=== PATIENT | female | born 1945 | race Caucasian/White ===

== ENCOUNTER 2016-08-11 14:43 | Inpatient (IN) | payer MEDICARE, OTHER ==
[2016-08-11 14:57] VITALS: BMI 19.7
[2016-08-11 15:22] LABS: MPV 7.5 fL (7.4-10.4)
[2016-08-11 15:35] LABS: BLOOD UREA NITROGEN 20 MG/DL (7-17); CALCIUM 8.4 MG/DL (8.4-10.2); CALCULATED OSMOLALITY 261 MOs/Kg (270-290); CHLORIDE 95 mEq/L (98-107); GLUCOSE 137 MG/DL (70-99); SODIUM LEVEL 133 mEq/L (137-146); TOTAL PROTEIN 7.4 G/DL (6.3-8.2)
[2016-08-11] MEDS ORDERED: NS 1,000 ML IV ONE ×2 (15:43→17:53)
[2016-08-11] MEDS ORDERED: PIPERACILLIN AND TAZOBACTAM 3.375 GM in D5W 100 ML IV ONE (15:43)
[2016-08-11] MEDS ORDERED: Pharmacy Review for Metformin - IV Contrast Given SCH (16:00)
[2016-08-11 16:19] LABS: LEUKOCYTES/URINE NEG (NEGATIVE); NITRITE/URINE NEG (NEGATIVE); URINE OCCULT BLOOD 2+ (NEG/TRACE)
--- NOTE | 2016-08-11 16:31 | EDPRACDOC ---
- General Information Chief Complaint: Abdominal Pain Stated Complaint: ABD PAIN Time Seen by Provider: 08/11/16 15:32 Information Source: Patient, Family Home Medications: Home Medications Pravastatin [Pravachol] 40 mg PO DAILY 08/18/15 Metoprolol Succinate (XL) [Toprol Xl] 50 mg PO DAILY 08/22/15 Zolpidem Tartrate [Ambien] 5 mg PO HS PRN 02/08/16 Omeprazole [Prilosec] 20 mg PO DAILY PRN 04/18/16 Allergies/Adverse Reactions: Allergies Allergy/AdvReac Type Severity Reaction Status Date / Time No Known Allergies Allergy Verified 08/11/16 14:56 - History of Present Illness Onset: FRI HPI: WEAKNESS FOR 2-3 DAYS, AGGRAVATED BY STANDING AND WALKING SUCH TO THE BATHROOM. LOW-GRADE FEVER FOR 2 DAYS WELL. 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 PATIENT HAD X-RAY PERFORMED 2 DAYS AGO BY ONCOLOGIST WHICH DEMONSTRATED POSSIBLE SMALL-BOWEL OBSTRUCTION. HOWEVER FOR PAST 2 DAYS THE PATIENT HAS HAD NORMAL STOOL OUTPUT. AND SOME NAUSEA BUT NO SIGNIFICANT VOMITING. SHE HAS CHRONIC ABDOMINAL PAIN, HOWEVER FOR THE PAST 2 DAYS HER PAIN IS ACTUALLY IMPROVED. SHE IS SERIOUSLY CONCERNED ABOUT BOWEL OBSTRUCTION RELATED TO HER RECURRENT COLON CANCER. NO SIGNIFICANT COUGH OR SHORTNESS OF BREATH NO DYSURIA URGENCY OR FREQUENCY NO WOUNDS. ED Past Medical History - History Reviewed Yes Nurses notes reviewed and agree except as marked - Patient Medical History Neurological History: Denies: Cerebrovascular Accident, Seizures Cardiac History: Reports: Hypertension, Hypercholesterolemia. Denies: Atrial Fibrillation Respiratory History: Denies: Asthma, COPD, Pneumonia GI/ History: Denies: Renal Disease, Liver Failure, Gastroesophageal Reflux Musculoskeletal History: Denies: Arthritis, Rheumatoid Arthritis Psychological History: Denies: Depression, Anxiety, Substance Use Disorder Systemic History: Reports: Cancer (COLON WITH METS) Surgical History: Reports: Cholecystectomy, Hysterectomy, Other (Laparoscopic colon resection) Date of Last Chemotherapy Date: 5 WEEKS AG - Family Medical History Reports: Cancer (lung cancer related to work grandfather). Denies: Hypertension , Diabetes, Stroke, Cardiac Disorders - Social Medical History Smoking Status: Heavy tobacco smoker (5 or more cigarettes/day or daily pipe/ cigar) Social History: Denies: Substance Use Disorder EDM Review of Systems - Review of Systems ROS Negative Except as Marked: Yes All systems reviewed and were negative except as marked - Physical Exam Constitutional: No apparent distress, Alert, Cachectic. negative: Well nourished, Well appearing Oriented to: Time, Person, Place Last recorded Vital Signs: Last Vital Signs Temp 100.6 F H 08/11/16 14:56 Pulse 109 08/11/16 15:40 Resp 20 08/11/16 15:40 BP 130/69 08/11/16 15:40 Pulse Ox 95 08/11/16 15:40 Oxygen Pulse Oxygen Saturation 95 O2 Device Room Air Oxygen Flow Rate Fraction of Inspired Oxygen ( FIO2) - HEENT Head: Normal Eye Exam: Normal Oropharynx: Membranes Dry Nose: No Symptoms Reported Neck: Normal. negative: Limited ROM, Lymphadenopathy, Meningeal Signs - Respiratory/Cardiovascular Respiratory: Normal - CTA Cardiovascular: Normal - GI Auscultation: Normal Palpation: Normal Tenderness: Diffuse, Mild. negative: Guarding, Rebound, Rigidity Kerr's Sign: Negative - Bladder: Normal - Musculoskeletal Back: Normal Extremities: Normal. negative: Clubbing, Cyanosis, Pedal Edema, Pedal Pulse - Integumentary Skin: Normal, Warm, Dry - Neurologic Memory Impaired: Normal Motor Function: Normal Mood Description: Anxious Thought: Coherent - Re-evaluation Re-evaluation 3 Re-evaluation Time: 18:51 (WELL APPEARING, TOLERATING WATER W/O N/V. ABD EXAM BENIGN.) HISTORY DOES NOT SUGGEST SMALL BOWEL OBSTRUCTION, I SUSPECT THE CT SCAN FINDINGS ARE ACTUALLY MORE RELATED TO A BOWEL STRICTURE WITHOUT OBSTRUCTION. BASED ON HISTORY AND PHYSICAL EXAM THERE IS NO INDICATION THAT THE FEVER IS RELATED TO ANYTHING IN THE ABDOMEN. SHE HAS HAD IV FLUIDS HE HAS HAD ANTIBIOTICS SHE IS DOING WELL - Results 08/11/16 15:09 08/11/16 15:09 WBC 1.2 xk/uL (3.8-10.8) L 08/11/16 15:09 RBC 4.16 xM/uL (4.20-5.40) L 08/11/16 15:09 Hgb 13.6 g/dL (12.0-16.0) 08/11/16 15:09 Hct 39.4 % (36-47) 08/11/16 15:09 MCV 95 fL (81-99) 08/11/16 15:09 MCH 32.6 pg (27-32) H 08/11/16 15:09 MCHC 34.4 g/dl (33-36) 08/11/16 15:09 RDW 12.1 % (11.5-14.5) 08/11/16 15:09 Plt Count 151 xk/uL (130-400) 08/11/16 15:09 MPV 7.5 fL (7.4-10.4) 08/11/16 15:09 Sodium 133 mEq/L (137-146) L 08/11/16 15:09 Potassium 3.2 mEq/L (3.5-5.1) L 08/11/16 15:09 Chloride 95 mEq/L (98-107) L 08/11/16 15:09 Carbon Dioxide 26 mMOL/L (22-33) 08/11/16 15:09 Anion Gap 15 mEq/L (8-16) 08/11/16 15:09 BUN 20 MG/DL (7-17) H 08/11/16 15:09 Creatinine 0.90 MG/DL (0.52-1.04) 08/11/16 15:09 Estimated GFR (MDRD) > 60 mL/min (>=60) 08/11/16 15:09 Glucose 137 MG/DL (70-99) H 08/11/16 15:09 Calculated Osmolality 261 MOs/Kg (270-290) L 08/11/16 15:09 Lactic Acid 2.0 mEq/L (0.7-2.1) 08/11/16 15:08 Calcium 8.4 MG/DL (8.4-10.2) 08/11/16 15:09 Total Bilirubin 2.4 MG/DL (0.2-1.3) H 08/11/16 15:09 AST 64 IU/L (14-36) H 08/11/16 15:09 ALT 69 IU/L (9-52) H 08/11/16 15:09 Alkaline Phosphatase 114 IU/L (55-165) 08/11/16 15:09 Total Protein 7.4 G/DL (6.3-8.2) 08/11/16 15:09 Albumin 4.0 G/DL (3.5-5.0) 08/11/16 15:09 Urine Color Neha 08/11/16 15:09 Urine Clarity Sl cldy 08/11/16 15:09 Urine pH 6.0 (5.0-8.0) 08/11/16 15:09 Ur Specific Sterling 1.025 (1.003-1.035) 08/11/16 15:09 Urine Protein 2+ (NEG/TRACE) H 08/11/16 15:09 Urine Glucose (UA) Neg (NEGATIVE) 08/11/16 15:09 Urine Ketones 1+ (NEGATIVE) H 08/11/16 15:09 Urine Occult Blood 2+ (NEG/TRACE) H 08/11/16 15:09 Urine Nitrite Neg (NEGATIVE) 08/11/16 15:09 Urine Bilirubin 1+ (NEGATIVE) H 08/11/16 15:09 Urine Urobilinogen 8 MG/DL (0-1) H 08/11/16 15:09 Ur Leukocyte Esterase Neg (NEGATIVE) 08/11/16 15:09 Urine RBC 2-5 (0-5) 08/11/16 15:09 Urine WBC 2-5 (0-5) 08/11/16 15:09 Ur Epithelial Cells 1+ 08/11/16 15:09 Urine Bacteria 1+ (NEG/FEW) H 08/11/16 15:09 Hyaline Casts 10-20 (0-2) H 08/11/16 15:09 Granular Casts 0-2 (NONE) H 08/11/16 15:09 Urine Mucus Large (NEG/OCC) 08/11/16 15:09 Lab Results 08/11/16 08/11/16 08/11/16 15:09 15:09 15:09 WBC 1.2 L RBC 4.16 L Hgb 13.6 Hct 39.4 MCV 95 MCH 32.6 H MCHC 34.4 RDW 12.1 Plt Count 151 MPV 7.5 Sodium 133 L Potassium 3.2 L Chloride 95 L Carbon Dioxide 26 Anion Gap 15 BUN 20 H Creatinine 0.90 Estimated GFR (MDRD) > 60 Glucose 137 H Calculated Osmolality 261 L Lactic Acid Calcium 8.4 Total Bilirubin 2.4 H AST 64 H ALT 69 H Alkaline Phosphatase 114 Total Protein 7.4 Albumin 4.0 Urine Color Neha Urine Clarity Sl cldy Urine pH 6.0 Ur Specific Sterling 1.025 Urine Protein 2+ H Urine Glucose (UA) Neg Urine Ketones 1+ H Urine Occult Blood 2+ H Urine Nitrite Neg Urine Bilirubin 1+ H Urine Urobilinogen 8 H Ur Leukocyte Esterase Neg Urine RBC 2-5 Urine WBC 2-5 Ur Epithelial Cells 1+ Urine Bacteria 1+ H Hyaline Casts 10-20 H Granular Casts 0-2 H Urine Mucus Large 08/11/16 15:08 WBC RBC Hgb Hct MCV MCH MCHC RDW Plt Count MPV Sodium Potassium Chloride Carbon Dioxide Anion Gap BUN Creatinine Estimated GFR (MDRD) Glucose Calculated Osmolality Lactic Acid 2.0 Calcium Total Bilirubin AST ALT Alkaline Phosphatase Total Protein Albumin Urine Color Urine Clarity Urine pH Ur Specific Sterling Urine Protein Urine Glucose (UA) Urine Ketones Urine Occult Blood Urine Nitrite Urine Bilirubin Urine Urobilinogen Ur Leukocyte Esterase Urine RBC Urine WBC Ur Epithelial Cells Urine Bacteria Hyaline Casts Granular Casts Urine Mucus - Diagnostic Imaging Chest Image interpreted by: Radiologist Patient Name: SUSIE PATIÑO LOC: ED : 1945 AGE: 71 Order Date:08/11/16 Date of Service:03/20 Report # [id number] Ord Physician: Sondra Patton MD Exam # [id number] Emergency Physician: Sondra Patton MD Exam(s): [id number] RAD/DG CHEST 2V CLINICAL DATA: Shortness of breath and weakness EXAM: CHEST - 2 VIEW COMPARISON: 06/19/2016 FINDINGS: Left chest wall port is again noted. Cardiac shadow is stable. The lungs are well aerated bilaterally without focal infiltrate or sizable effusion. No bony abnormality is noted. IMPRESSION: No active disease. Electronically Signed By: Robetro Alba M.D. On: 08/11/2016 17:32 Electronically Signed By: Roberto Alba MD Electronically Signed Date/Time: 734 Dictate Date/Time: 08/11/16 1729 Technologist: Delmis Grant Transcribed By: Nicolle Transcribed Date/Time: 08/11/16 1732 Abdomen Image interpreted by: Radiologist Patient Name: SUSIE PATIÑO LOC: ED : 1945 AGE: 71 Order Date:08/11/16 Date of Service:03/20 Report # [id number] Ord Physician: Sondra Patton MD Exam # [id number] Emergency Physician: Sondra Patton MD Exam(s): [id number] CT/CT ABD-PELV W/IV CM CLINICAL DATA: Abdominal pain. Recurrent colon cancer. EXAM: CT ABDOMEN AND PELVIS WITH CONTRAST TECHNIQUE: Multidetector CT imaging of the abdomen and pelvis was performed using the standard protocol following bolus administration of intravenous contrast. CONTRAST: 100 cc of Isovue 370 COMPARISON: 09/24/2015 FINDINGS: Lower chest: Stable 4 mm subpleural nodule in the right middle lobe. There is no pleural fluid identified. Hepatobiliary: Numerous low-attenuation foci are again noted throughout both lobes of liver. Index lesion within the central right hepatic lobe measures 1.1 cm, image 15 of series 3. Previously 7 mm. Index lesion within the medial segment of right lobe of liver measures 11 mm, image 21 of series 3. Previously 9 mm. Within the lateral segment of left lobe of liver there is an 11 mm low density structure. Unchanged from previous exam. Previous cholecystectomy. Mild increase caliber of the CBD is noted which measures 9 mm. Pancreas: The pancreas is unremarkable. Spleen: Normal appearance of the spleen. Adrenals/Urinary Tract: The adrenal glands are both normal. The left kidney is unremarkable. Small cyst within the inferior pole of right kidney is noted which measures 6 mm.The urinary bladder appears normal. Stomach/Bowel: The stomach is unremarkable. There is abnormal wall thickening and dilatation of the small bowel loops. Small bowel loops measure up to 3.8 cm and are worrisome for small bowel obstruction. Within the central lab there is a soft tissue attenuating mass which appears to be the point of obstruction, image number 42 of series 3. This is where the previously noted peritoneal deposits were measured. The obstructing lesion measures approximately 2.9 x 2.1 cm, image number 42 of series 3. This is compared with 2.0 x 1.5 cm previously. The terminal ileum appears decreased in caliber. There are postoperative changes from partial resection of the transverse colon. No pathologic dilatation of the large bowel loops. There is increased soft tissue at the anastomosis which measures 3.9 x 2.1 cm, image 34 of series 3. Suspicious for local tumor recurrence. Vascular/Lymphatic: Calcified atherosclerotic disease involves the abdominal aorta. No aneurysm. The index gastrohepatic ligament lymph node measures 1.1 cm, image 23 of series 3. Unchanged from previous exam. No pelvic adenopathy. Reproductive: Previous hysterectomy. Cyst in the left ovary measures 2.9 cm and is unchanged from previous exam. Other: No free fluid or free intraperitoneal air. Musculoskeletal: No aggressive lytic or sclerotic bone lesions identified. IMPRESSION: 1. Examination is positive for small bowel obstruction. 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 2. Multifocal liver metastasis. The largest lesion within the central right hepatic lobe has increased in size from previous exam. Electronically Signed By: Carla Alexandre M.D. On: 08/11/2016 17:58 Electronically Signed By: Carla Alexandre MD Electronically Signed Date/Time: 801 Dictate Date/Time: 08/11/16 1746 Technologist: Delmy Pires Transcribed By: Nicolle Transcribed Date/Time: 08/11/16 5370 - Additional Information [facility] IS FOCUSED ON FEVER AND WEAKNESS. RECURRENT COLON CANCER POSSIBLE OBSTRUCTION IS ALSO A CONSIDERATION CT SCAN WILL BE PERFORMED WELL. - Departure Disposition: Admit IP To This Hospital Condition: Stable Final Diagnosis: Neutropenia, febrile, Small bowel obstruction Instructions: Acute Abdominal Pain (ED) Education/Counseling Given To: Patient Education/Counseling Given Regarding: Diagnosis, Treatment, Prognosis Referrals: Maurice Guzmán MD [Primary Care Provider] - One Week Decision to Admit Time: 18:30 Decision to admit date: 08/11/16 Decision to admit: from ED - Physician Consulted Surgery Time Called: 18:28 Provider Called: Dominic Torres Time Pododermatologist Returned Call: 18:50 (WILL SEE IN CONSULTATION, NON OPERATIVE AT THIS TIME) Hospitalist Time Called: 18:30 Provider Called: Tom Ray Time Pododermatologist Returned Call: 18:30
[2016-08-11 16:34] LABS: SEG NEUTROPHIL 6 % (45-76)
--- NOTE | 2016-08-11 17:34 | DIRPT ---
CLINICAL DATA: Shortness of breath and weakness EXAM: CHEST - 2 VIEW COMPARISON: 06/19/2016 FINDINGS: Left chest wall port is again noted. Cardiac shadow is stable. The lungs are well aerated bilaterally without focal infiltrate or sizable effusion. No bony abnormality is noted. IMPRESSION: No active disease. Electronically Signed By: Roberto Alba M.D. On: 08/11/2016 17:32
[2016-08-11] MEDS ORDERED: CEFEPIME HYDROCHLORIDE 2 GM in D5W 100 ML IV ONE (17:53)
--- NOTE | 2016-08-11 18:01 | DIRPT ---
CLINICAL DATA: Abdominal pain. Recurrent colon cancer. EXAM: CT ABDOMEN AND PELVIS WITH CONTRAST TECHNIQUE: Multidetector CT imaging of the abdomen and pelvis was performed using the standard protocol following bolus administration of intravenous contrast. CONTRAST: 100 cc of Isovue 370 COMPARISON: 09/24/2015 FINDINGS: Lower chest: Stable 4 mm subpleural nodule in the right middle lobe. There is no pleural fluid identified. Hepatobiliary: Numerous low-attenuation foci are again noted throughout both lobes of liver. Index lesion within the central right hepatic lobe measures 1.1 cm, image 15 of series 3. Previously 7 mm. Index lesion within the medial segment of right lobe of liver measures 11 mm, image 21 of series 3. Previously 9 mm. Within the lateral segment of left lobe of liver there is an 11 mm low density structure. Unchanged from previous exam. Previous cholecystectomy. Mild increase caliber of the CBD is noted which measures 9 mm. Pancreas: The pancreas is unremarkable. Spleen: Normal appearance of the spleen. Adrenals/Urinary Tract: The adrenal glands are both normal. The left kidney is unremarkable. Small cyst within the inferior pole of right kidney is noted which measures 6 mm.The urinary bladder appears normal. Stomach/Bowel: The stomach is unremarkable. There is abnormal wall thickening and dilatation of the small bowel loops. Small bowel loops measure up to 3.8 cm and are worrisome for small bowel obstruction. Within the central lab there is a soft tissue attenuating mass which appears to be the point of obstruction, image number 42 of series 3. This is where the previously noted peritoneal deposits were measured. The obstructing lesion measures approximately 2.9 x 2.1 cm, image number 42 of series 3. This is compared with 2.0 x 1.5 cm previously. The terminal ileum appears decreased in caliber. There are postoperative changes from partial resection of the transverse colon. No pathologic dilatation of the large bowel loops. There is increased soft tissue at the anastomosis which measures 3.9 x 2.1 cm, image 34 of series 3. Suspicious for local tumor recurrence. Vascular/Lymphatic: Calcified atherosclerotic disease involves the abdominal aorta. No aneurysm. The index gastrohepatic ligament lymph node measures 1.1 cm, image 23 of series 3. Unchanged from previous exam. No pelvic adenopathy. Reproductive: Previous hysterectomy. Cyst in the left ovary measures 2.9 cm and is unchanged from previous exam. Other: No free fluid or free intraperitoneal air. Musculoskeletal: No aggressive lytic or sclerotic bone lesions identified. IMPRESSION: 1. Examination is positive for small bowel obstruction. 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 2. Multifocal liver metastasis. The largest lesion within the central right hepatic lobe has increased in size from previous exam. Electronically Signed By: Carla Alexandre M.D. On: 08/11/2016 17:58
[2016-08-11] MEDS ORDERED: PROMETHAZINE 25 MG/ML VIAL IV PRN (18:52)
[2016-08-11] MEDS ORDERED: ONDANSETRON HCL 4 MG/2 ML VIAL IV PRN (18:52)
[2016-08-11] MEDS ORDERED: GLUCOSE (ORAL GEL) 15 GM TUBE PO PRN (18:52)
[2016-08-11] MEDS ORDERED: GLUCAGON 1 MG VIAL SQ PRN (18:52)
[2016-08-11] MEDS ORDERED: TUSSIONEX 5 ML ORAL SYRINGE PO PRN (18:52)
[2016-08-11] MEDS ORDERED: ACETAMINOPHEN 325 MG SUPP PR PRN (18:52)
[2016-08-11] MEDS ORDERED: ACETAMINOPHEN 325 MG/TAB TABLET PO PRN (18:52)
[2016-08-11] MEDS ORDERED: SENNA CONCENTRATE TAB PO PRN (18:52)
[2016-08-11] MEDS ORDERED: DEXTROSE 25 GM/50 ML PFS IV PRN (18:52)
[2016-08-11] MEDS ORDERED: BENZONATATE 100 MG PERLES PO PRN (18:52)
[2016-08-11] MEDS ORDERED: BISACODYL 10 MG SUPP PR PRN (18:52)
--- NOTE | 2016-08-11 18:55 | HISTPHYS ---
- Chief Complaint Bilateral mid abdominal pain for the past 2 days. This mid abdominal pain started 5 days after december chemotherapy and I do not want any more of that, it made me feel awful. Vomited bile yesterday - History of Present Illness Oncologist Dr. Steele Surgeon Dr. Torres Primary care provider Dr. Guzmán Patient is a very unfortunate yet pleasant 71-year-old white female smoker with metastatic colon cancer who comes in the emergency room today complaining of mid abdominal pain 5 days after chemotherapy starting this past which was 3 days ago. She says to me that I do not want any more of that chemotherapy as it causes me pain that was worse than the labor of childbirth. She also goes on to tell me that she has talked with Jaye Tellez about her prognosis and was advised she has 1-2 years of life expectancy left. She was restarted on chemotherapy approximately 7 to 10 days ago with subsequent development of this pain. Yesterday she vomited bile but still has occasional bowel movement. CT abdomen and pelvis today showed evidence of metastatic disease worsening, involving small bowel, liver, and peritoneum. She was originally diagnosed with stage IIIB colon cancer little over year ago and has gone through chemotherapy per Dr. Steele at that time. ANC 180 - Medical History Cardiac History: Reports: Hypertension, Hypercholesterolemia. Denies: Atrial Fibrillation Respiratory History: Denies: Asthma, COPD, Pneumonia GI/ History: Denies: Renal Disease, Liver Failure, Gastroesophageal Reflux Musculoskeletal History: Denies: Arthritis, Rheumatoid Arthritis Systemic History: Reports: Cancer (COLON WITH METS) Neurological History: Denies: Cerebrovascular Accident, Seizures Psychological History: Denies: Depression, Anxiety, Substance Use Disorder - Surgical History Reports: Cholecystectomy, Hysterectomy, Other (Laparoscopic colon resection) - Medictions/Allergies Allergies No Known Allergies Allergy (Verified 08/11/16 14:56) Current Medication List: Reviewed Home Medications Pravastatin [Pravachol] 40 mg PO DAILY 08/18/15 Metoprolol Succinate (XL) [Toprol Xl] 50 mg PO DAILY 08/22/15 Zolpidem Tartrate [Ambien] 5 mg PO HS PRN 02/08/16 Omeprazole [Prilosec] 20 mg PO DAILY PRN 04/18/16 - Family History Reports: Cancer (lung cancer related to work grandfather). Denies: Hypertension , Diabetes, Stroke, Cardiac Disorders - Social History Travel Outside of [place] in the Last 3 Months?: No Lives: with Spouse Smoking Status: Heavy tobacco smoker (5 or more cigarettes/day or daily pipe/ cigar) (Half-pack cigarettes a day) Social History: Reports: Alcohol Use (1-2 glass wine a day). Denies: Substance Use Disorder - Review of Systems Constitutional: Chills, Fever, Fatigue, Loss of Appetite, Weakness Eyes: No Symptoms Reported (No blurry vision, visual changes, eye pain, or eye redness.) Ears: No Symptoms Reported (No ear pain or discharge) Nose: No Symptoms Reported (No nasal discharge/congestion or bleeding) Mouth: No Symptoms Reported (No oropharyngeal lesions or erythema) Throat/Neck: No Symptoms Reported (No throat pain or swelling.No oropharyngeal lesions or erythema.) Respiratory: No Symptoms Reported (No cough, wheezing, or shortness of breath.) Cardiovascular: No Symptoms Reported (No chest pain or palpitations.) Gastrointestinal: Nausea, Vomiting, Abdominal Pain Genitourinary: No Symptoms Reported (No dysuria or hematuria.) Neurological: No Symptoms Reported (No headache, dizziness, seizures, or focal weakness.) Musculoskeletal:: No Symptoms Reported Integumentary: No Symptoms Reported (no rashes or lesions) Allergic/Immunologic: No Symptoms Reported (no rashes or lesions) Hematologic: No Symptoms Reported (No chronic anemia, bleeding, or easy bruising.), Other (Lymphatics- no lymph node swelling or pain.) Endocrine: No Symptoms Reported (No thyroid issues, polyuria, or polydipsia.) Psychiatric: Depression - Physical Exam Vital Signs: Initial Vitals Temperature 100.6 F H 08/11/16 14:56 Pulse Rate 111 08/11/16 14:56 Respiratory Rate 18 08/11/16 14:56 Blood Pressure 114/57 L 08/11/16 14:56 Pulse Oxygen Saturation 94 08/11/16 14:56 Constitutional: Alert (Awake, Fully oriented. Normal and appropriate affect.Well appearing. Well nourished.), No apparent distress Oriented to: Time, Person, Place - HEENT Head: Normal (normocephalic, atraumatic.), Other (No cervical lymphadenopathy. No supraclavicular lymphadenopathy. Neck: No palpable mass, supple , trachea midline.) Eye: Normal (pupils equal, reactive to light, and round; EOMI, Sclera white) Oropharynx: Normal (Pharynx: Moist without exudate,Gums-no swelling, No oropharyngeal lesions or erythema, Mucous membranes are dry.) ENT EAC: Normal (No oropharyngeal lesions or erythema. Mucous membranes are dry. ) TMJ: Normal Nose: No Symptoms Reported (septum midline, Nares patent, without discharge or bleeding.) Respiratory: Normal - CTA (Clear to auscultation bilaterally. No wheezing, rales , rhonchi. Chest wall movements are symmetric. No use of accessory muscles to breathe.) Cardiovascular: Tachycardia. negative: Bradycardia, Diastolic murmur, Systolic murmur, Gallop/S3, Gallop/S4 - GI Auscultation: Normal (normal active sounds) Palpation: Normal (Soft,non distended,nontender. No hepatosplenomegaly.) Tenderness: Diffuse, Moderate Kerr's Sign: Negative - Musculoskeletal Back: Normal (Non-Tender) Extremities: Normal (Normal tone, DP pulses 2+ bilaterally, No cyanosis or edema bilaterally, FROM bilaterally.) Spine: non-tender, normal alignment, limited range of motion - Integumentary Skin: Normal (Clean, dry, and intact. No rashes. No lesions.) Lymphatics: Normal (No cervical lymphadenopathy. No supraclavicular lymphadenopathy.) - Neurologic Memory Impaired: Normal Motor Function: Normal (Motor 5/5 throughout.Normal tone, Pulses 2+ No cyanosis or edema, FROM) Cranial Nerve: Normal (CN II-XII intact sensation, strength 5/5) Cerebellar: Normal. negative: Ataxia, Past-Pointing, Tremor Mood Description: Normal (Fully oriented. Normal and appropriate affect.) Thought: Coherent Perception: Normal (Normal and appropriate affect.) - Focused CV Perfusion Exam Vital Signs: Last Vital Signs Temp 100.6 F H 08/11/16 14:56 Pulse 103 08/11/16 18:53 Resp 20 08/11/16 15:40 BP 99/60 08/11/16 18:53 Pulse Ox 94 08/11/16 18:53 - Lab Results 08/11/16 15:09 08/11/16 15:09 Laboratory Results - last 24 hr 08/11/16 08/11/16 08/11/16 15:08 15:09 15:09 WBC 1.2 L RBC 4.16 L Hgb 13.6 Hct 39.4 MCV 95 MCH 32.6 H MCHC 34.4 RDW 12.1 Plt Count 151 MPV 7.5 Neut % (Auto) Cancelled Lymph % (Auto) Cancelled [place] % (Auto) Cancelled Eos % (Auto) Cancelled Baso % (Auto) Cancelled Absolute Neuts (auto) Cancelled Absolute Lymphs (auto) Cancelled Seg Neuts % (Manual) 6 L Band Neutrophils % 9 H Lymphocytes % (Manual) 44 Monocytes % (Manual) 40 H Metamyelocytes % 1 H Absolute Neutrophils 0.18 L Absolute Lymphocytes 0.53 L Atypical Lymphocytes Occ Toxic Granulation 1+ Platelet Estimate Norm RBC Morphology 1+ polychrom Sodium 133 L Potassium 3.2 L Chloride 95 L Carbon Dioxide 26 Anion Gap 15 BUN 20 H Creatinine 0.90 Estimated GFR (MDRD) > 60 Glucose 137 H Hemoglobin A1c Calculated Osmolality 261 L Lactic Acid 2.0 Calcium 8.4 Total Bilirubin 2.4 H AST 64 H ALT 69 H Alkaline Phosphatase 114 Total Protein 7.4 Albumin 4.0 TSH Urine Color Urine Clarity Urine pH Ur Specific [place] Urine Protein Urine Glucose (UA) Urine Ketones Urine Occult Blood Urine Nitrite Urine Bilirubin Urine Urobilinogen Ur Leukocyte Esterase Urine RBC Urine WBC Ur Epithelial Cells Urine Bacteria Hyaline Casts Granular Casts Urine Mucus 08/11/16 08/11/16 08/11/16 15:09 15:09 15:09 WBC RBC Hgb Hct MCV MCH MCHC RDW Plt Count MPV Neut % (Auto) Lymph % (Auto) [place] % (Auto) Eos % (Auto) Baso % (Auto) Absolute Neuts (auto) Absolute Lymphs (auto) Seg Neuts % (Manual) Band Neutrophils % Lymphocytes % (Manual) Monocytes % (Manual) Metamyelocytes % Absolute Neutrophils Absolute Lymphocytes Atypical Lymphocytes Toxic Granulation Platelet Estimate RBC Morphology Sodium Potassium Chloride Carbon Dioxide Anion Gap BUN Creatinine Estimated GFR (MDRD) Glucose Hemoglobin A1c 6.0 H Calculated Osmolality Lactic Acid Calcium Total Bilirubin AST ALT Alkaline Phosphatase Total Protein Albumin TSH 1.54 Urine Color Neha Urine Clarity Sl cldy Urine pH 6.0 Ur Specific [place] 1.025 Urine Protein 2+ H Urine Glucose (UA) Neg Urine Ketones 1+ H Urine Occult Blood 2+ H Urine Nitrite Neg Urine Bilirubin 1+ H Urine Urobilinogen 8 H Ur Leukocyte Esterase Neg Urine RBC 2-5 Urine WBC 2-5 Ur Epithelial Cells 1+ Urine Bacteria 1+ H Hyaline Casts 10-20 H Granular Casts 0-2 H Urine Mucus Large - Diagnostic Findings CT abdomen pelvis FINDINGS: Lower chest: Stable 4 mm subpleural nodule in the right middle lobe. There is no pleural fluid identified. Hepatobiliary: Numerous low-attenuation foci are again noted throughout both lobes of liver. Index lesion within the central right hepatic lobe measures 1.1 cm, image 15 of series 3. Previously 7 mm. Index lesion within the medial segment of right lobe of liver measures 11 mm, image 21 of series 3. Previously 9 mm. Within the lateral segment of left lobe of liver there is an 11 mm low density structure. Unchanged from previous exam. Previous cholecystectomy. Mild increase caliber of the CBD is noted which measures 9 mm. Pancreas: The pancreas is unremarkable. Spleen: Normal appearance of the spleen. Adrenals/Urinary Tract: The adrenal glands are both normal. The left kidney is unremarkable. Small cyst within the inferior pole of right kidney is noted which measures 6 mm.The urinary bladder appears normal. Stomach/Bowel: The stomach is unremarkable. There is abnormal wall thickening and dilatation of the small bowel loops. Small bowel loops measure up to 3.8 cm and are worrisome for small bowel obstruction. Within the central lab there is a soft tissue attenuating mass which appears to be the point of obstruction, image number 42 of series 3. This is where the previously noted peritoneal deposits were measured. The obstructing lesion measures approximately 2.9 x 2.1 cm, image number 42 of series 3. This is compared with 2.0 x 1.5 cm previously. The terminal ileum appears decreased in caliber. There are postoperative changes from partial resection of the transverse colon. No pathologic dilatation of the large bowel loops. There is increased soft tissue at the anastomosis which measures 3.9 x 2.1 cm, image 34 of series 3. Suspicious for local tumor recurrence. Vascular/Lymphatic: Calcified atherosclerotic disease involves the abdominal aorta. No aneurysm. The index gastrohepatic ligament lymph node measures 1.1 cm, image 23 of series 3. Unchanged from previous exam. No pelvic adenopathy. Reproductive: Previous hysterectomy. Cyst in the left ovary measures 2.9 cm and is unchanged from previous exam. Other: No free fluid or free intraperitoneal air. Musculoskeletal: No aggressive lytic or sclerotic bone lesions identified. IMPRESSION: 1. Examination is positive for small bowel obstruction. 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 2. Multifocal liver metastasis. The largest lesion within the central right hepatic lobe has increased in size from previous exam. - Assessment (1) Sepsis A41.9 - SEPSIS, UNSPECIFIED ORGANISM Acute Present on Admission: Yes Qualifiers: Sepsis type: sepsis due to unspecified organism Qualified Code(s): A41.9 - Sepsis, unspecified organism Patient with ANC of 180 febrile hypotensive and tachycardic. She is very critically ill in danger of dying. (2) Adenocarcinoma of colon metastatic to liver C18.9 - MALIGNANT NEOPLASM OF COLON, UNSPECIFIED; C78.7 - SECONDARY MALIG NEOPLASM OF LIVER AND INTRAHEPATIC BILE DUCT Acute Present on Admission: Yes Suggestion of Small-bowel obstruction on CT of abdomen pelvis and consult has been placed for Dr. Torres who will provide much needed input. If not surgical candidate would consider hospice if bowel obstruction does not improve. Pain management will be attempted. (3) Neutropenia, febrile D70.9 - NEUTROPENIA, UNSPECIFIED; R50.81 - FEVER PRESENTING WITH CONDITIONS CLASSIFIED ELSEWHERE Acute Present on Admission: Yes Associated with her chemotherapy. This will be halted. (4) Small bowel obstruction K56.69 - OTHER INTESTINAL OBSTRUCTION Acute Present on Admission: Yes Surgical consultation. (5) Tobacco abuse Z72.0 - TOBACCO USE Chronic Present on Admission: Yes Given her limited life expectancy will not broach the topic of smoking cessation. (6) Hypertension I10 - ESSENTIAL (PRIMARY) HYPERTENSION Chronic Present on Admission: Yes Qualifiers: Hypertension type: essential hypertension Qualified Code(s): I10 - Essential (primary) hypertension Monitor blood pressure but hold antihypertensive therapy as her blood pressure is below 100 systolic. - Plan Due to the presence of and / or the risk of deterioration, my attendance to this patient required critical care time, including assessment/reassessment, documentation, ordering and interpreting ancillary studies, discussion with staff and consultants,patient and family, and excludes time spent on separately billable procedures. This individual is critically ill and in danger of dying. Case Care Discussed with: Patient, Nursing Staff Total Time: Critical care time spent 1 hour 18 minutes. Critical Care: Yes Code: 291 (292)
[2016-08-11] MEDS ORDERED: Albuterol/Ipratropium Neb 3 ML NEB NEB PRN (18:58)
[2016-08-11] MEDS: OXYCODONE HCL 5 MG TABLET PO PRN (19:32)
[2016-08-11] MEDS ORDERED: ENOXAPARIN 40 MG/0.4 ML PFS SQ SCH (20:00)
[2016-08-11] MEDS: Levofloxacin 750 mg/150 ml D5W 750 MG/150 ML RTU IV SCH (20:58)
[2016-08-11] MEDS: NS/KCl 20 mEq 1,000 ML IV SCH (20:58)
[2016-08-11] MEDS: NICOTINE 21 MG PATCH TOP SCH (20:59)
[2016-08-11] MEDS: Fluconazole 200 mg in NS 200 MG/100 ML ML IV SCH (22:32)
[2016-08-11] MEDS: PIPERACILLIN AND TAZOBACTAM 4.5 GM in D5W 100 ML IV SCH (23:46)
[2016-08-12] MEDS: NS/KCl 20 mEq 1,000 ML IV SCH ×4 (01:24→20:36)
[2016-08-12] MEDS: OXYCODONE HCL 5 MG TABLET PO PRN ×2 (01:28→12:45)
[2016-08-12] MEDS: TEMAZEPAM 15 MG CAP PO PRN ×2 (01:31→21:43)
[2016-08-12] MEDS ORDERED: POTASSIUM CHLORIDE 20 MEQ TAB PO SCH (02:00)
[2016-08-12] MEDS: KCl 10 mEq/100 ml Premix (Run) 10 MEQ/100 ML RTU IV SCH ×4 (03:31→07:56)
[2016-08-12] MEDS: PIPERACILLIN AND TAZOBACTAM 4.5 GM in D5W 100 ML IV SCH ×4 (05:46→22:54)
[2016-08-12] MEDS: REGULAR INSULIN 100 UNITS/ML - 3 ML VIAL SQ SCH ×2 (05:59→17:29)
[2016-08-12] MEDS: METOPROLOL (TOPROL-XL) 50 MG TAB PO SCH (07:31)
[2016-08-12 07:35] LABS: MPV 7.9 fL (7.4-10.4)
[2016-08-12 07:44] LABS: BLOOD UREA NITROGEN 19 MG/DL (7-17); CALCULATED OSMOLALITY 265 MOs/Kg (270-290); CHLORIDE 104 mEq/L (98-107); GLUCOSE 109 MG/DL (70-99); SODIUM LEVEL 136 mEq/L (137-146)
[2016-08-12 07:55] LABS: CALC CORRECTED 8.2 MG/DL (8.4-10.2); CALCIUM 6.8 MG/DL (8.4-10.2)
[2016-08-12] MEDS ORDERED: CHAPSTICK LIP BALM ONE (08:02)
[2016-08-12 08:22] LABS: AMORPHOUS 1+; LEUKOCYTES/URINE NEG (NEGATIVE); NITRITE/URINE NEG (NEGATIVE); URINE OCCULT BLOOD 1+ (NEG/TRACE); WBC/URINE 0-2 (0-5)
[2016-08-12 08:44] LABS: SEG NEUTROPHIL 12 % (45-76); TOTAL CELL COUNT 100
[2016-08-12] MEDS ORDERED: METOPROLOL (TOPROL-XL) 50 MG TAB PO SCH (09:00)
[2016-08-12] MEDS ORDERED: Magnesium Sulfate 2 gm/D5W 2 GM/50 ML RTU IV ONE (09:00)
--- NOTE | 2016-08-12 13:50 | PCM.SURGCO ---
Consultation Date: 08/12/16 Requesting Physician: Tom Ray Tick Eradicator: Dominic Torres Consult Reason: Bowel Obstruction - History of Present Illness The patient is a very unfortunate 71-year-old female who had been diagnosed with stage IIIB colon cancer just a little over a year ago. She had undergone chemotherapy for that after her resection but unfortunately after she finished her chemotherapy had a CEA that was elevated and then was found to have liver metastasis as well as peritoneal implant disease. She has recently been on a different regime of chemotherapy including Avastin. She had recently developed abdominal pain with nausea and vomiting that was worse than her typical symptoms from her chemotherapy. She had a x-ray done on Friday that showed possible ileus versus small-bowel obstruction. She had subsequently continued to have nausea vomiting abdominal pain came to the emergency room last evening had a CT scan that showed bowel obstruction likely secondary to peritoneal implant. We have been asked to see her. She says she is at the end of her rope as far as the chemotherapy in is not interested in continuing the chemotherapy currently. She says she does not want have any surgical treatment unless it would have significant benefit. She is very lucid understands everything. Chief Complaint: Abdominal pain and vomitting. - Past Medical and Surgical History Cardiac History: Reports: Hypertension, Hypercholesterolemia. Denies: Atrial Fibrillation Respiratory History: Reports: No Significant History. Denies: Asthma, COPD, Pneumonia GI/ History: Reports: PMH GI Yes/No Other (Colon cancer with liver metastasis and peritoneal implants.). Denies: Renal Disease, Liver Failure, Gastroesophageal Reflux Systemic History: Reports: Cancer (Metastatic colon cancer.). Denies: Diabetes Musculoskeletal History: Reports: No Significant History. Denies: Arthritis, Rheumatoid Arthritis Psychological History: Reports: No Significant History. Denies: Depression, Anxiety, Substance Use Disorder Neurological History: Reports: No Significant History. Denies: Cerebrovascular Accident, Seizures Past Surgical History: Reports: Cholecystectomy, Hysterectomy, Other ( Laparoscopic colon resection) Allergies No Known Allergies Allergy (Verified 08/11/16 14:56) Home Medications Pravastatin [Pravachol] 40 mg PO DAILY 08/18/15 Metoprolol Succinate (XL) [Toprol Xl] 50 mg PO DAILY 08/22/15 Zolpidem Tartrate [Ambien] 5 mg PO HS PRN 02/08/16 Omeprazole [Prilosec] 20 mg PO DAILY PRN 04/18/16 - Social History Travel Outside of [place] in the Last 3 Months?: No Lives: with Spouse Smoking Status: Heavy tobacco smoker (5 or more cigarettes/day or daily pipe/ cigar) (Half-pack cigarettes a day) Social History: Reports: Alcohol Use (1-2 glass wine a day). Denies: Substance Use Disorder - Family History Reports: Cancer (lung cancer related to work grandfather). Denies: Hypertension , Diabetes, Stroke, Cardiac Disorders - Review of Systems Constitutional: Chills, Fever, Fatigue, Loss of Appetite, Weakness Eyes: No Symptoms Reported. negative: Blurred Vision, Double Vision Ears: No Symptoms Reported. negative: Drainage, Hearing Loss Nose: No Symptoms Reported. negative: Abrasion, Bleeding Mouth: No Symptoms Reported. negative: Pain, Dry Mouth Throat/Neck: No Symptoms Reported. negative: Hoarseness, Snoring Respiratory: No Symptoms Reported. negative: Cough, Shortness of Breath Cardiovascular: No Symptoms Reported. negative: Chest Pain, Cyanosis Gastrointestinal: Nausea, Vomiting, Abdominal Pain. negative: Diarrhea Genitourinary: No Symptoms Reported. negative: Bleeding, Dysuria Neurological: No Symptoms Reported. negative: Dizziness, Seizure Musculoskeletal:: No Symptoms Reported. negative: Joint Pain, Swelling, Joint Swelling Integumentary: No Symptoms Reported. negative: Bruising, Rash Allergic/Immunologic: No Symptoms Reported. negative: Hives, Itching Hematologic: No Symptoms Reported. negative: Lymphadenopathy, Anemia Endocrine: No Symptoms Reported. negative: Excessive Thirst, Excessive Hunger Psychiatric: Depression. negative: Anxiety - Physical Exam Vital Signs: Initial Vitals Temperature 100.6 F H 08/11/16 14:56 Pulse Rate 111 08/11/16 14:56 Respiratory Rate 18 08/11/16 14:56 Blood Pressure 114/57 L 08/11/16 14:56 Pulse Oxygen Saturation 94 08/11/16 14:56 Constitutional: No apparent distress. negative: Alert Oriented to: Time, Person, Place - HEENT Head: Normal. negative: Laceration, Tender Eye: Normal. negative: Edema, Scleral Icterus Oropharynx: Normal. negative: Membranes Dry, Red ENT EAC: Normal. negative: Blood TMJ: Normal. negative: Crepitance, Tender Nose: No Symptoms Reported. negative: Abrasion, Bleeding Respiratory: Normal - CTA. negative: Accessory Muscle Use, Rhonchi Cardiovascular: Tachycardia. negative: Bradycardia, Irregular, Diastolic murmur , Systolic murmur - GI Auscultation: Normal. negative: Bruit Palpation: Normal. negative: Enlarged liver, Enlarged spleen Tenderness: Moderate. negative: Guarding, Rebound Kerr's Sign: Negative Rectal Exam: Deferred - Exam Deferred: Yes - Musculoskeletal Back: Normal. negative: Abrasion, CVA Tenderness Extremities: Normal. negative: Calf Tenderness, Clubbing, Cyanosis, Edema Spine: non-tender, full range of motion, normal alignment - Integumentary Skin: Normal. negative: Clammy, Diaphoretic Lymphatics: Normal. negative: Adenopathy, Tender - Neurologic Memory Impaired: Normal Motor Function: Normal Cranial Nerve: Normal Cerebellar: Normal Mood Description: Normal Thought: Coherent Perception: Normal - Lab Results 08/12/16 06:50 08/12/16 06:50 - Assessment/Plan (1) Small bowel obstruction K56.69 - OTHER INTESTINAL OBSTRUCTION Acute Comment: The patient has what appears to be a partial bowel obstruction due to metastatic tumor. We have gone over the options of surgical treatment in detail the patient is not at this point want have any surgical intervention. She is not interested in any more chemotherapy. I have told her that we will do what we can to assist her in any way we can. (2) Adenocarcinoma of colon metastatic to liver C18.9 - MALIGNANT NEOPLASM OF COLON, UNSPECIFIED; C78.7 - SECONDARY MALIG NEOPLASM OF LIVER AND INTRAHEPATIC BILE DUCT Acute Comment: Has had multiple chemotherapeutic agents without success. (3) Abdominal pain R10.9 - UNSPECIFIED ABDOMINAL PAIN Acute Comment: Treat with medications may need hospice evaluation. (4) Nausea and vomiting R11.2 - NAUSEA WITH VOMITING, UNSPECIFIED Acute Comment: Treat with medications if it becomes recalcitrant then could offer PEG tube.
[2016-08-12] MEDS: HYDROmorphone 1 MG INJECTION IV PRN ×2 (14:45→17:35)
[2016-08-12] MEDS ORDERED: Vaccine Screening Complete SCH (16:00)
--- NOTE | 2016-08-12 16:30 | GENMEDPROG ---
Chief Complaint: Complains of nausea and abdominal pain. Holding out hope for other chemotherapy alternative Notes Reviewed: Yes Events from last night noted and discussed with Clinical Staff Current Medication List: Reviewed Currently: Reports: Nausea and Vomiting, Abdominal Pain. Denies: Cough, Wheezing, BEE, SOB, Chest Pain DVT Prophylaxis: Yes - Physical Examination Vital Signs and I&O: Last Vital Signs Temp 98.9 F 08/12/16 14:00 Pulse 106 08/12/16 14:00 Resp 19 08/12/16 14:00 BP 105/56 L 08/12/16 14:00 Pulse Ox 92 08/12/16 14:00 Oxygen Pulse Oxygen Saturation 92 O2 Device Room Air Oxygen Flow Rate Fraction of Inspired Oxygen ( FIO2) Intake & Output 08/09/16 08/10/16 08/11/16 08/12/16 23:59 23:59 23:59 23:59 Intake Total 2100 882 Output Total 300 Balance 2100 582 Patient's weight 52.418 kg General: Alert, Oriented x3, Cooperative. negative: Well appearing ( Chronically ill appearing) HEENT: Normal, PERRLA, EOMI, Anicteric Sclera Neck: Non-tender, Full range of motion, Normal Trachea alignment. negative: JVD Lymphatics: Normal (No cervical lymphadenopathy. No supraclavicular lymphadenopathy.). negative: Adenopathy Respiratory: Normal - CTA (Clear to auscultation bilaterally. No wheezing, rales , rhonchi. Chest wall movements are symmetric. No use of accessory muscles to breathe.) Cardiovascular: Regular rate and rhythm, No Gallops,Rubs/Murmurs GI: Soft, No hepatospenomegaly, No masses, Tenderness Extremities/Musculoskeletal: Normal pulses. negative: Tenderness, Swelling, Edema, Clubbing Skin: Warm,Dry and Intact, No rashes, No breakdown, No significant lesion Neurological: Normal speech, Strength at 5/5 X4 ext, Normal tone, Cranial nerves 3-12 NL, Reflexes 2+ Psych/Mental Status: Appropriate, Normal Affect, Cooperative Lab/DI/Studies Reviewed: Laboratory Results - last 24 hr 08/11/16 08/11/16 08/11/16 15:09 15:09 15:09 WBC 1.2 L RBC 4.16 L Hgb 13.6 Hct 39.4 MCV 95 MCH 32.6 H MCHC 34.4 RDW 12.1 Plt Count 151 MPV 7.5 Neut % (Auto) Cancelled Lymph % (Auto) Cancelled [place] % (Auto) Cancelled Eos % (Auto) Cancelled Baso % (Auto) Cancelled Absolute Neuts (auto) Cancelled Absolute Lymphs (auto) Cancelled Seg Neuts % (Manual) 6 L Band Neutrophils % 9 H Lymphocytes % (Manual) 44 Monocytes % (Manual) 40 H Eosinophils % (Manual) Metamyelocytes % 1 H Absolute Neutrophils 0.18 L Absolute Lymphocytes 0.53 L Vacuolated Neuts Atypical Lymphocytes Occ Toxic Granulation 1+ Dohle Bodies Platelet Estimate Norm RBC Morphology 1+ polychrom Sodium Potassium Chloride Carbon Dioxide Anion Gap BUN Creatinine Estimated GFR (MDRD) Glucose POC Capillary Glucose Hemoglobin A1c 6.0 H Calculated Osmolality Calcium Corrected Calcium Magnesium Albumin TSH 1.54 Urine Color Urine Clarity Urine pH Ur Specific [place] Urine Protein Urine Glucose (UA) Urine Ketones Urine Occult Blood Urine Nitrite Urine Bilirubin Urine Urobilinogen Ur Leukocyte Esterase Urine RBC Urine WBC Amorphous Sediment Urine Bacteria 08/12/16 08/12/16 08/12/16 05:58 06:50 06:50 WBC 1.4 L RBC 3.22 L Hgb 10.5 L D Hct 30.6 L MCV 95 MCH 32.5 H MCHC 34.3 RDW 12.6 Plt Count 121 L MPV 7.9 Neut % (Auto) Cancelled Lymph % (Auto) Cancelled [place] % (Auto) Cancelled Eos % (Auto) Cancelled Baso % (Auto) Cancelled Absolute Neuts (auto) Cancelled Absolute Lymphs (auto) Cancelled Seg Neuts % (Manual) 12 L Band Neutrophils % 13 H Lymphocytes % (Manual) 34 Monocytes % (Manual) 40 H Eosinophils % (Manual) 1 Metamyelocytes % Absolute Neutrophils 0.35 L Absolute Lymphocytes 0.48 L Vacuolated Neuts 1+ Atypical Lymphocytes Toxic Granulation 1+ Dohle Bodies 1+ Platelet Estimate Occ giant platelet RBC Morphology Reviewed this admiss Sodium 136 L Potassium 3.4 L Chloride 104 Carbon Dioxide 24 Anion Gap 11 BUN 19 H Creatinine 0.80 Estimated GFR (MDRD) > 60 Glucose 109 H POC Capillary Glucose 103 H Hemoglobin A1c Calculated Osmolality 265 L Calcium 6.8 L* Corrected Calcium 8.2 L Magnesium 1.50 L Albumin 2.6 L TSH Urine Color Urine Clarity Urine pH Ur Specific [place] Urine Protein Urine Glucose (UA) Urine Ketones Urine Occult Blood Urine Nitrite Urine Bilirubin Urine Urobilinogen Ur Leukocyte Esterase Urine RBC Urine WBC Amorphous Sediment Urine Bacteria 08/12/16 08/12/16 06:50 07:55 WBC RBC Hgb Hct MCV MCH MCHC RDW Plt Count MPV Neut % (Auto) Lymph % (Auto) [place] % (Auto) Eos % (Auto) Baso % (Auto) Absolute Neuts (auto) Absolute Lymphs (auto) Seg Neuts % (Manual) Band Neutrophils % Lymphocytes % (Manual) Monocytes % (Manual) Eosinophils % (Manual) Metamyelocytes % Absolute Neutrophils Absolute Lymphocytes Vacuolated Neuts Atypical Lymphocytes Toxic Granulation Dohle Bodies Platelet Estimate RBC Morphology Sodium Potassium Chloride Carbon Dioxide Anion Gap BUN Creatinine Estimated GFR (MDRD) Glucose POC Capillary Glucose Hemoglobin A1c Calculated Osmolality Calcium Corrected Calcium Magnesium Cancelled Albumin TSH Urine Color Yellow Urine Clarity Sl hzy Urine pH 6.0 Ur Specific [place] 1.020 Urine Protein 1+ H Urine Glucose (UA) Neg Urine Ketones Neg Urine Occult Blood 1+ H Urine Nitrite Neg Urine Bilirubin Neg Urine Urobilinogen <2.0 Ur Leukocyte Esterase Neg Urine RBC 2-5 Urine WBC 0-2 Amorphous Sediment 1+ Urine Bacteria Few - Assessment (1) Small bowel obstruction Acute K56.69 - OTHER INTESTINAL OBSTRUCTION Comment/Plan: Appreciate surgery evaluation. Not sure there is a good solution to this. Surgery would be very difficult. And she is not improving with current chemotherapy. For now supportive care, IV fluids and pain management. (2) Adenocarcinoma of colon metastatic to liver Acute C18.9 - MALIGNANT NEOPLASM OF COLON, UNSPECIFIED; C78.7 - SECONDARY MALIG NEOPLASM OF LIVER AND INTRAHEPATIC BILE DUCT Comment/Plan: Appreciate surgery evaluation. Conservative therapy currently. If not surgical candidate would consider hospice if bowel obstruction does not improve. Pain management will be attempted. (3) Neutropenia, febrile Acute D70.9 - NEUTROPENIA, UNSPECIFIED; R50.81 - FEVER PRESENTING WITH CONDITIONS CLASSIFIED ELSEWHERE Comment/Plan: Blood counts are slightly better today. (4) Sepsis Acute A41.9 - SEPSIS, UNSPECIFIED ORGANISM Qualifiers: Sepsis type: sepsis due to unspecified organism Qualified Code(s): A41.9 - Sepsis, unspecified organism Comment/Plan: Continue current care. (5) Hypertension Chronic I10 - ESSENTIAL (PRIMARY) HYPERTENSION Qualifiers: Hypertension type: essential hypertension Qualified Code(s): I10 - Essential (primary) hypertension Comment/Plan: Monitor blood pressure but hold antihypertensive therapy as her blood pressure is below 100 systolic. (6) Tobacco abuse Chronic Z72.0 - TOBACCO USE Comment/Plan: Given her limited life expectancy will not broach the topic of smoking cessation. Case Care Discussed with: Patient, Consultants, Nursing Staff, Resource Management
[2016-08-12] MEDS: NICOTINE 21 MG PATCH TOP SCH (20:49)
[2016-08-12] MEDS: Fluconazole 200 mg in NS 200 MG/100 ML ML IV SCH (20:49)
[2016-08-13] MEDS: NS/KCl 20 mEq 1,000 ML IV SCH ×4 (03:50→21:37)
[2016-08-13] MEDS: PIPERACILLIN AND TAZOBACTAM 4.5 GM in D5W 100 ML IV SCH ×4 (03:53→23:54)
[2016-08-13] MEDS: REGULAR INSULIN 100 UNITS/ML - 3 ML VIAL SQ SCH ×2 (05:41→16:33)
[2016-08-13 07:23] LABS: MPV 8.2 fL (7.4-10.4)
[2016-08-13 07:45] LABS: BLOOD UREA NITROGEN 18 MG/DL (7-17); CALCULATED OSMOLALITY 266 MOs/Kg (270-290); CHLORIDE 106 mEq/L (98-107); GLUCOSE 107 MG/DL (70-99); SODIUM LEVEL 137 mEq/L (137-146)
[2016-08-13] MEDS: METOPROLOL (TOPROL-XL) 50 MG TAB PO SCH (08:22)
[2016-08-13] MEDS: HYDROmorphone 1 MG INJECTION IV PRN ×2 (08:33→13:21)
[2016-08-13 08:44] LABS: SEG NEUTROPHIL 45 % (45-76)
--- NOTE | 2016-08-13 15:03 | GENMEDPROG ---
Chief Complaint: Met with patient with Dr. Steele. She has declined further chemotherapy prefers to go home with home hospice Notes Reviewed: Yes Events from last night noted and discussed with Clinical Staff Current Medication List: Reviewed Currently: Reports: Nausea and Vomiting, Abdominal Pain. Denies: Cough, Wheezing, BEE, SOB, Chest Pain DVT Prophylaxis: Yes - Physical Examination Vital Signs and I&O: Last Vital Signs Temp 97.5 F 08/13/16 14:38 Pulse 100 08/13/16 14:38 Resp 20 08/13/16 14:38 BP 149/65 08/13/16 14:38 Pulse Ox 92 08/13/16 14:38 Oxygen Pulse Oxygen Saturation 92 O2 Device Nasal Cannula Oxygen Flow Rate 3 Fraction of Inspired Oxygen ( FIO2) Intake & Output 08/10/16 08/11/16 08/12/16 08/13/16 23:59 23:59 23:59 23:59 Intake Total 2100 0 2072 Output Total 300 500 Balance 2100 1780 1572 Patient's weight 52.418 kg 53.552 kg General: Alert, Oriented x3, Cooperative. negative: Well appearing ( Chronically ill-appearing) HEENT: Normal, PERRLA, EOMI, Anicteric Sclera Neck: Non-tender, Full range of motion, Normal Trachea alignment, Normal inspection. negative: JVD Lymphatics: Normal. negative: Adenopathy, Tender Respiratory: Normal - CTA. negative: Accessory Muscle Use, Rhonchi Cardiovascular: Regular rate and rhythm, No Gallops,Rubs/Murmurs GI: Normal bowel sounds, Soft, Non tender, No hepatospenomegaly Extremities/Musculoskeletal: Normal pulses. negative: Tenderness, Swelling, Edema Skin: Warm,Dry and Intact, No rashes, No breakdown, No significant lesion Neurological: Normal speech, Strength at 5/5 X4 ext, Normal tone, Cranial nerves 3-12 NL Psych/Mental Status: Appropriate, Normal Affect, Cooperative Lab/DI/Studies Reviewed: Laboratory Results - last 24 hr 08/12/16 08/12/16 08/13/16 07:49 16:42 05:30 WBC RBC Hgb Hct MCV MCH MCHC RDW Plt Count MPV Neut % (Auto) Lymph % (Auto) [place]ane % (Auto) Eos % (Auto) Baso % (Auto) Absolute Neuts (auto) Absolute Lymphs (auto) Seg Neuts % (Manual) Band Neutrophils % Lymphocytes % (Manual) Monocytes % (Manual) Eosinophils % (Manual) Myelocytes % Absolute Neutrophils Absolute Lymphocytes Toxic Granulation Dohle Bodies Platelet Estimate RBC Morphology Sodium Potassium Chloride Carbon Dioxide Anion Gap BUN Creatinine Estimated GFR (MDRD) Glucose POC Capillary Glucose 94 114 H Calculated Osmolality Calcium Ur Random Microalbumin 52.3 08/13/16 08/13/16 06:17 06:17 WBC 4.6 RBC 3.23 L Hgb 10.5 L Hct 30.8 L MCV 95 MCH 32.6 H MCHC 34.2 RDW 12.6 Plt Count 151 MPV 8.2 Neut % (Auto) Cancelled Lymph % (Auto) Cancelled [place]ane % (Auto) Cancelled Eos % (Auto) Cancelled Baso % (Auto) Cancelled Absolute Neuts (auto) Cancelled Absolute Lymphs (auto) Cancelled Seg Neuts % (Manual) 45 Band Neutrophils % 24 H Lymphocytes % (Manual) 19 Monocytes % (Manual) 7 Eosinophils % (Manual) 3 Myelocytes % 2 H Absolute Neutrophils 3.17 Absolute Lymphocytes 0.87 Toxic Granulation 1+ Dohle Bodies Present Platelet Estimate Large plts present RBC Morphology 1+ poik Sodium 137 Potassium 3.8 Chloride 106 Carbon Dioxide 22 Anion Gap 13 BUN 18 H Creatinine 0.70 Estimated GFR (MDRD) > 60 Glucose 107 H POC Capillary Glucose Calculated Osmolality 266 L Calcium 7.0 L Ur Random Microalbumin - Assessment (1) Small bowel obstruction Acute K56.69 - OTHER INTESTINAL OBSTRUCTION Comment/Plan: Appreciate surgery and Oncology evaluation. Patient requesting home with hospice. Discussed with hospice who has seen her and agrees. Will arrange home needs today and planned discharge in a.m. (2) Adenocarcinoma of colon metastatic to liver Acute C18.9 - MALIGNANT NEOPLASM OF COLON, UNSPECIFIED; C78.7 - SECONDARY MALIG NEOPLASM OF LIVER AND INTRAHEPATIC BILE DUCT Comment/Plan: As above. Home with hospice for comfort care. (3) Neutropenia, febrile Acute D70.9 - NEUTROPENIA, UNSPECIFIED; R50.81 - FEVER PRESENTING WITH CONDITIONS CLASSIFIED ELSEWHERE Comment/Plan: Blood count stabilizing (4) Sepsis Acute A41.9 - SEPSIS, UNSPECIFIED ORGANISM Qualifiers: Sepsis type: sepsis due to unspecified organism Qualified Code(s): A41.9 - Sepsis, unspecified organism Comment/Plan: Continue current care. (5) Hypertension Chronic I10 - ESSENTIAL (PRIMARY) HYPERTENSION Qualifiers: Hypertension type: essential hypertension Qualified Code(s): I10 - Essential (primary) hypertension Comment/Plan: Monitor blood pressure but hold antihypertensive therapy as her blood pressure is below 100 systolic. (6) Tobacco abuse Chronic Z72.0 - TOBACCO USE Comment/Plan: Given her limited life expectancy will not broach the topic of smoking cessation. Case Care Discussed with: Patient, Consultants, Nursing Staff, Physical Therapy , Resource Management, Respiratory Therapy, [employer]
[2016-08-13] MEDS: NICOTINE 21 MG PATCH TOP SCH (21:35)
[2016-08-13] MEDS: Levofloxacin 750 mg/150 ml D5W 750 MG/150 ML RTU IV SCH (21:36)
[2016-08-13] MEDS: Fluconazole 200 mg in NS 200 MG/100 ML ML IV SCH (22:49)
--- NOTE | 2016-08-13 23:34 | PMOCONSULT ---
Date of Service:: 08/13/16 Medical Oncology Consultation: HISTORY OF PRESENT ILLNESS: The patient is a 71-year-old woman who I was asked to consult upon with respect to future management regarding her metastatic colon cancer. This patient was initially diagnosed with stage IIIB colon cancer for which she underwent a partial colectomy and 12 cycles of adjuvant chemotherapy. This was all completed in March 2016. Unfortunately, within 2 months of her last cycle of chemotherapy, her CEA level again briskly rising. Scans done in July 2016 unfortunately showed her to have metastatic disease in her liver and peritoneum. Based upon this, she was started on her 1st cycle of FOLFIRI/Avastin on July 31. Unfortunately, since then, the patient's daily quality of life has significantly declined. She complains of having intermittent abdominal pain. She also has noticed increased abdominal distention. Recently, scans were done which showed bowel obstruction. The patient initially elected not to come into the hospital, but as her symptoms worsened, she eventually came into the hospital and has been essentially receiving comfort care over the past few days. Despite her bowel obstruction, the patient claims she is still able to pass flatus and have occasional bowel movements. However, due to how poorly she has done over these past few weeks, the patient is not interested in undergoing further palliative chemotherapy. PAST MEDICAL HISTORY: Unchanged versus previously dictated notes PAST SURGICAL HISTORY: Unchanged versus previously dictated notes CURRENT MEDICATIONS: Home Medications Pravastatin Pravachol 40 mg PO DAILY 08/18/15 Metoprolol Succinate (XL) Toprol Xl 50 mg PO DAILY 08/22/15 Zolpidem Tartrate Ambien 5 mg PO HS PRN 02/08/16 Omeprazole Prilosec 20 mg PO DAILY PRN 04/18/16 ALLERGIES: She has no known drug allergies FAMILY HISTORY: Unchanged versus previously dictated notes SOCIAL HISTORY: Unchanged versus previously dictated notes REVIEW OF SYSTEMS: DIGITAL STRATEGY MANAGER: The patient denies headaches, changes in hearing, vision, balance or coordination. PULMONARY: The patient denies a productive cough, hemoptysis or baseline shortness of breath. CARDIAC: The patient denies angina, heart palpitations, or heart failure issues. GI: The patient has abdominal distention and pain, but denies nausea, vomiting, diarrhea, constipation, hematochezia, or weight loss. : The patient denies hematuria, dysuria, or increased urinary frequency. MUSCULOSKELETAL: The patient denies arthralgias, myalgias, or joint effusions. ENDOCRINE: The patient denies diabetes, hypercholesterolemia, thyroid, or pituitary gland disorders. PSYCHIATRIC: The patient denies depression, anxiety, or other mood disorders. DERMATOLOGIC: The patient denies petechia, purpura, or other abnormal skin lesions. CONSTITUTION: The patient denies fevers, night sweats, but has had a decreased energy level and failure to thrive. PHYSICAL EXAMINATION: Vital signs include her being afebrile over the past 24 hours, pulse 100, respirations 20, blood pressure 133/67 GENERAL: The patient is alert and oriented x3, in no acute distress.The patient does look weak and diaphoretic. She also is showing evidence of alopecia. HEENT EXAM: Clear oropharynx with no exudate or lesions appreciated. LUNG EXAM: Clear to auscultation bilaterally. CARDIAC EXAM: Regular rate and rhythm. No murmurs, rubs, or gallops. ABDOMINAL EXAM: Soft, nontender,but with moderate distention; she has hypoactive bowel sounds; no hepatosplenomegaly. EXTREMITY EXAM: No clubbing, cyanosis, or edema. LYMPH NODE SURVEY: No palpable cervical, supraclavicular, axillary, or inguinal lymphadenopathy. NEUROLOGIC EXAM: Cranial nerves II-XII and cerebellar functions are grossly intact. SKIN EXAM: No petechiae, purpura or other abnormal skin lesions are appreciated. ASSESSMENT AND PLAN: A 71-year-old woman with metastatic colon cancer, who just completed her 1st cycle of palliative FOLFIRI/Avastin chemotherapy less than 2 weeks ago. At the bedside today, we talked about potential options moving forward. The patient reiterated she is no longer interested in undergoing additional palliative chemotherapy. She understands her disease has progressed significantly in just a short period of time. She is more interested in focusing on maintaining her daily quality of life for as long as possible. Based upon this, all future palliative chemotherapy will be discontinued. A hospice bilingual sales representative did come in today to talk to her about hospice care, for which she has agreed to undergo. We are currently in the process of making sure her transition from the hospital to home with hospice care is as seamless as possible. She will likely be discharged from the hospital within the next 12-24 hours. I will work closely with hospice over these next few weeks/months to ensure the patient gets the supportive care she needs to maintain her quality of life for as long as possible. Although somewhat despondent with the discussions at the bedside today, the patient understands all the plans discussed and is comfortable with her decisions made today.
[2016-08-14] MEDS: NS/KCl 20 mEq 1,000 ML IV SCH (03:42)
[2016-08-14] MEDS: PIPERACILLIN AND TAZOBACTAM 4.5 GM in D5W 100 ML IV SCH (04:59)
[2016-08-14] MEDS: REGULAR INSULIN 100 UNITS/ML - 3 ML VIAL SQ SCH (05:05)
[2016-08-14 07:44] LABS: MPV 7.5 fL (7.4-10.4)
[2016-08-14] MEDS: METOPROLOL (TOPROL-XL) 50 MG TAB PO SCH (08:03)
--- NOTE | 2016-08-14 09:02 | PCM.DCS92 ---
- Final/Secondary Discharge Diagnosis (1) Small bowel obstruction Acute K56.69 - OTHER INTESTINAL OBSTRUCTION Present on Admission: Yes Comment: Better today. Wants to go home with hospice. Arrangements have been made. (2) Adenocarcinoma of colon metastatic to liver Acute C18.9 - MALIGNANT NEOPLASM OF COLON, UNSPECIFIED; C78.7 - SECONDARY MALIG NEOPLASM OF LIVER AND INTRAHEPATIC BILE DUCT Present on Admission: Yes Comment: As above. Home with hospice for comfort care. (3) Neutropenia, febrile Acute D70.9 - NEUTROPENIA, UNSPECIFIED; R50.81 - FEVER PRESENTING WITH CONDITIONS CLASSIFIED ELSEWHERE Present on Admission: Yes Comment: Blood count stabilizing (4) Sepsis Acute A41.9 - SEPSIS, UNSPECIFIED ORGANISM Present on Admission: Yes sepsis due to unspecified organism A41.9 - Sepsis, unspecified organism Comment: Continue current care. (5) Hypertension Chronic I10 - ESSENTIAL (PRIMARY) HYPERTENSION Present on Admission: Yes essential hypertension I10 - Essential (primary) hypertension Comment: Monitor blood pressure but hold antihypertensive therapy as her blood pressure is below 100 systolic. (6) Tobacco abuse Chronic Z72.0 - TOBACCO USE Present on Admission: Yes Comment: Given her limited life expectancy will not broach the topic of smoking cessation. Discharge Disposition: Disc to Hospice Care Discharge Condition: Improved Cognitive Discharge Status: Unimpaired Fuctional Discharge Status: Independent Physician Follow up/Referrals: Maurice Guzmán MD [Primary Care Provider] - One Week New Prescriptions: Oxycodone Immediate Release [Oxycodone Immediate Release (OxyIR)] 5 mg PO Q4H PRN #60 tablet PRN Reason: Severe Pain Discharge Home Medication List Pravastatin [Pravachol] 40 mg PO DAILY 08/18/15 [History Confirmed 08/11/16 Last Taken 08/07/16] Metoprolol Succinate (XL) [Toprol Xl] 50 mg PO DAILY 08/22/15 [History Confirmed 08/11/16 Last Taken 08/11/16] Zolpidem Tartrate [Ambien] 5 mg PO HS PRN 02/08/16 [History Confirmed 08/11/16 Last Taken 08/10/16] Omeprazole [Prilosec] 20 mg PO DAILY PRN 04/18/16 [History Confirmed 08/11/16 Last Taken 08/07/16] Oxycodone Immediate Release [Oxycodone Immediate Release (OxyIR)] 5 mg PO Q4H PRN #60 tablet 08/14/16 [Rx Last Taken Unknown] O2 Device: Room Air Diet at Discharge: As Tolerated Activity: No Restrictions Call Office For: Worsening Symptoms - DC Summary Notes Hospital Course Note:: Discharge summary on patient named SUSIE GUEVARA admitted to [facility] on 08/11/16 by Tom Ray MD. Date of discharge is []. Ms Guevara is a pleasant 71-year-old white female with a history of metastatic colon cancer. She presented to the hospital with abdominal pain and nausea. X- rays revealed a partial small-bowel obstruction due to progressive cancer. She was admitted to the hospital provided supportive care. With conservative management including pain medications and IV fluids her abdominal pain and obstruction has improved. Surgery saw her in consultation and felt she did not need surgery at this point in time and would be high risk regardless. Oncology saw her in consultation and we had multiple discussions with the patient regarding her prognosis. She recognizes that her cancer has progressed. She no longer wants aggressive treatment such as chemotherapy. We recommended hospice who saw her in consultation. Patient has requested that we discharge her home with hospice to manage her pain. Dr. Steele will continue to follow her as needed. At the time of discharge she sitting up on the side of the bed with no distress. She is stable for discharge home. Total Time: 45 minutes - Physical Exam Vital Signs: Last Vital Signs Temp 97.4 F L 08/14/16 06:00 Pulse 82 08/14/16 06:00 Resp 18 08/14/16 06:00 BP 112/59 L 08/14/16 06:00 Pulse Ox 93 08/14/16 06:30 Oxygen Pulse Oxygen Saturation 93 O2 Device Room Air Oxygen Flow Rate 3 Fraction of Inspired Oxygen ( FIO2) Constitutional: No apparent distress, Well nourished, Well appearing. negative : Alert Oriented to: Time, Person, Place - HEENT Head: Normal. negative: Laceration, Tender Eye: Normal. negative: Edema, Scleral Icterus Oropharynx: Normal. negative: Membranes Dry, Red ENT EAC: Normal. negative: Blood TMJ: Normal. negative: Crepitance, Tender Nose: No Symptoms Reported. negative: Abrasion, Bleeding - Respiratory/Cardiovascular Respiratory: Normal - CTA. negative: Accessory Muscle Use, Rhonchi Cardiovascular: Normal - GI Auscultation: Normal. negative: Bruit Palpation: Normal. negative: Enlarged liver, Enlarged spleen Tenderness: Moderate. negative: Guarding, Rebound Kerr's Sign: Negative Rectal Exam: Deferred - Musculoskeletal Back: Normal. negative: Abrasion, CVA Tenderness Extremities: Normal. negative: Calf Tenderness, Clubbing, Cyanosis, Edema - Integumentary Skin: Warm, Dry Lymphatics: Normal. negative: Adenopathy, Tender - Neurologic Memory Impaired: Normal Motor Function: Normal Cranial Nerve: Normal Cerebellar: Normal Mood Description: Normal Thought: Coherent Perception: Normal
[2016-08-14 09:09] LABS: BLOOD UREA NITROGEN 11 MG/DL (7-17); CALCIUM 7.1 MG/DL (8.4-10.2); CALCULATED OSMOLALITY 263 MOs/Kg (270-290); CHLORIDE 111 mEq/L (98-107); GLUCOSE 95 MG/DL (70-99); SEG NEUTROPHIL 66 % (45-76); SODIUM LEVEL 137 mEq/L (137-146)
[2016-08-14 10:55] VITALS: BP 130/62; PULSE 86; TEMP 98.4
[2016-08-14] MEDS ORDERED: HEPARIN 500 UNITS/5 ML (100 UNITS/ML) SYR FLUSH ONE (11:00)
== END 2016-08-14 10:58 | disposition home or self-care (01) | DRG 872 ==
LOC: ED 14:43 → MPS3 18:52
PROVIDERS: ADMIT Internal Medicine; ATTEND Hospitalist
DX: A41.9 Sepsis, unspecified organism (principal); K56.69 Other intestinal obstruction; D70.9 Neutropenia, unspecified; C18.9 Malignant neoplasm of colon, unspecified; C78.7 Secondary malignant neoplasm of liver and intrahepatic bile duct; R50.81 Fever presenting with conditions classified elsewhere; I10 Essential (primary) hypertension; F17.210 Nicotine dependence, cigarettes, uncomplicated; E78.00 Pure hypercholesterolemia, unspecified; Z79.899 Other long term (current) drug therapy; Z72.89 Other problems related to lifestyle
CPT/HCPCS: 36415; 71020; 74177; 80048; 80053; 81001; 82040; 82043; 82962; 83036; 83605; 83735; 84443; 85007; 85027; 87040; 87086; 87804; 96361; 96365; 96372; 99284; 99406; A9698; G0237; J1170; J1450; J1642; J1650; J1956; J2405; J2543; J3475; J3480; J3490; J7040; J7060